=== PATIENT | male | born 2000 | race Two or more races ===

== ENCOUNTER 2024-05-30 21:13 | Emergency (ER) | payer MEDICAID, SELFPAY ==
--- NOTE | 2024-05-30 21:58 | EDNOTE_ITS ---
ED Dental RME/HPI General Chief complaint: Dental/Oral/Throat Stated complaint: LEFT TOOTH PAIN Time Seen by Provider: 05/30/24 21:55 Arrival date/time: 05/30/24 21:13 24 year old male present to emergency room with c/o of left lower tooth pain for 2 days. denies difficulty swallowing or shortness of breath. LOCATION: Tooth SEVERITY: Symptoms are described as being severe with limitations on activities of daily living CONTEXT: The patient is unable to identify any inciting events. DURATION/TIMING: The symptoms started approximately 2 days ASSOCIATED SYMPTOMS: The patient is unable to identify any other associated symptoms. MODIFYING FACTORS: The patient is unable to identify any alleviating or ag gravating symptoms. PERTINENT ROS: no fevers, no cough, no nausea,vomiting, diarrhea, no dizziness/headache no rash no loc/syncope episode REVIEW OF SYSTEMS: See History of Present Illness - with the exception of those mentioned in the history of present illness, all other systems reviewed and reported as negative GENERAL: In general the patient is awake, interactive, in an emergency depart [facility]. HEAD/EYES/EARS/NOSE/THROAT: No ludwigs, no abscess no airway obstruction normo- cephalic, atraumatic, mucus membranes are moist, anicteric, palpebral conjunctiva is pink, trachea is midline. CARDIOVASCULAR: regular rate and regular rhythm, no murmurs, heart sounds are not distant, strong pulses in all four extremities that are equal and symmetric bilateral upper and lower extremities, normal capillary refill. CHEST/PULMONARY: normal chest rise and fall, good air movement, clear to auscultation bilaterally, normal inspiratory to expiratory ratios without evidence of respiratory distress. NECK: No midline/Paraspinal tenderness, no step off ROM/Strenght intact No Kernig and bruzinski sign. No trauma SKIN: warm, dry, well-perfused, no jaundice, no rash, no telangiectasias or samantha agustina. PSYCH: calm, cooperative, no evidence of psychosis or agitation Related Data Previous Rx's ?Medication ?Instructions ?Recorded amoxicillin 875 mg-potassium 1 tab PO BID #14 tabs 12/16 clavulanate 125 mg tablet ibuprofen 800 mg tablet (IBU) 800 mg PO TID PRN fever or pain 05/30/24 #30 tabs Allergies Allergy/AdvReac Type Severity Reaction Status Date / Time No Known Allergies Allergy Verified 05/30/24 21:14 Course Course Course Narrative: Presentation consistent with dental pain of tooth lower teeth for 2 days? No evidence of Zach's Angina, large abscess pocket, requirement for emergent extraction, or other complications. Provided prescription for augmentin/IBU? Patient informed to follow up with local dentist. Return to ER if pain uncontrolled, abscess that drains purulent fluid, high fevers, trouble swallowing, or other concerns.? Plan:? Discharge from ED? F/U with local dentist Informed to return to ED if has new or worsening symptoms. Expressed understanding of and agreement with plan and all questions answered. Quality Measures none Orders Category Date Time Status Amoxicillin/Pot Clav 875 [Augmentin 875] Med 05/30/24 21:55 Discontinued 1 tab PO X1 ONE Ibuprofen Tab [Motrin Tab] Med 05/30/24 21:55 Discontinued 800 mg PO X1 ONE Dental / Oral Patient data External records reviewed:: [facility] previous records Clinical information provided by:: patient Social determinants that could affect healthcare access:: none Patient has the following chronic illnesses:: n/a How is presenting disease/condition affected by chronic disease/condition?: no chronic disease Evaluation data The following diagnostics were reviewed and interpreted by me:: other (specify) (n/a ) Lab and/or radiology exams considered but not ordered:: n/a Interpretation Summary: n/a Medications / Prescriptions Medications or Prescriptions considered but not ordered:: n/a Medication administrations:: Medication Administration History Discontinued Medications Amoxicillin/Clavulanate Potassium (Amoxicillin/Pot Clav 875 Tablet) 1 tab PO X1 ONE Stop: 05/30/24 21:56 Ibuprofen (Ibuprofen Tab 400 Mg Tablet) 800 mg PO X1 ONE Stop: 05/30/24 21:56 as stated above Consultations Consultation(s) initiated? (list below): No Diagnosis Most likely diagnosis given after review of the tests above:: dental pain Admission Indicated Admission indicated?: not indicated Admission Request Was there a request for admission?: No Disposition Plan Disposition Plan: Discharge Discharge Attestation Discharge Attestation: The patient and all family members were given an opportunity to ask questions and understood the discharge instructions. Discharge instructions specifically effects, indications for sooner follow up or return to the emergency department, and the expected course of current diagnosis. Patient condition: Stable Discharge Plan Plan Patient Disposition: HOME (Self Care) Health Concerns: Follow up with dentist Take tylenol or motrin as need Return to ED if sx worsen [facility] [address] [place] [address] Friday ? Friday 7:30am to 7:00pm Friday 7:30am to 5:30pm Prescriptions/Referrals Prescriptions/Med Rec: New ibuprofen [IBU] 800 mg tablet 800 mg PO TID PRN (Reason: fever or pain) Qty: 30 0RF amoxicillin-pot clavulanate 875-125 mg tablet 1 tab PO BID Qty: 14 0RF Referrals: No Primary/Family,Physician [Primary Care Provider] - In 1 week Problem List Clinical Impression: Toothache Patient/Caregiver Discharge Instructions Education Materials: ED Dental Pain Print Language: Portuguese Stand Alone Forms: Rena Award Info., Patient Portal Info Letter
[2024-05-30] MEDS: IBUPROFEN TAB 400 MG TABLET 800 MG PO (22:01)
[2024-05-30] MEDS: AMOXICILLIN/POT CLAV 875 TABLET 1 TAB PO (22:01)
== END 2024-05-30 22:04 | disposition home or self-care (01) ==
PROVIDERS: Emergency Provider Emergency Medicine
DX: K08.89 Other specified disorders of teeth and supporting structures (principal)
CPT/HCPCS: 99282; A9270

== ENCOUNTER 2024-12-28 00:23 | Emergency (ER) | payer SELFPAY ==
[2024-12-28 00:25] VITALS: BMI 39.9
[2024-12-28 00:44] VITALS: BP 131/85; PULSE 100; RESP 20; TEMP 36.6; O2SAT 95
--- NOTE | 2024-12-28 01:06 | EKG_ITS ---
[facility] Test Date: 2024-12-28 Pat Name: RAMAKRISHNA TONG Department: Room: - Gender: Male Side Splitter: : 2000 Requested By: Jonas Garcia Order Number: [id number] Reading MD: Jonas Garcia Measurements Intervals [place] Rate: 100 P: 50 PA: 110 QRS: 56 QRSD: 92 T: 35 QT: 358 QTc: 464 Interpretive Statements SINUS TACHYCARDIA WITH SHORT PA INTERVAL ABNORMAL RHYTHM ECG No previous ECG available for comparison /store/S0/[id number].pdf
--- NOTE | 2024-12-28 01:06 | XR_ITS ---
Examination: CT chest, without intravenous contrast. CT abdomen, without intravenous contrast. CT pelvis, without intravenous contrast. 2-D sagittal and coronal reconstructions. 3-D reconstructions. Date and time of exam: December 28, 2024, 0159 hours INDICATIONS: Chest abdominal and pelvic pain today shortness of breath CTDI vol (mgy) 6.69 DLP (MGycm) 475 Technique: Multiple CT images, 3.0 mm slice thickness, obtained chest, abdomen, pelvis, with the high-resolution 64 slice scanner.. Sagittal and coronal 2-D reconstructions are obtained. 3-D reconstructions Low dose protocols were performed. One or more of the following dose reduction techniques were used; automated exposure control, adjustment of the mA and/or KV according to patient size, use of iterative reconstruction technique. Findings: No thoracic aortic aneurysm dilatation Pulmonary artery segments are not enlarged No mediastinal lymphadenopathy. 3 mm pulmonary nodule right upper lobe. No pneumonia or pulmonary edema. No visualized liver or splenic lesion No gallstones No pancreatic or adrenal mass No renal or ureteral calculi No pericecal inflammatory change No bowel obstruction No prostatomegaly Minimal thickening of the urinary bladder wall IMPRESSION: No mediastinal lymphadenopathy. No pneumonia or pulmonary edema. 3 mm pulmonary nodule right upper lobe recommend 6-month follow-up PA lateral chest Grade 1 spondylolisthesis L5 on S1. Mild cystitis
--- NOTE | 2024-12-28 01:06 | XR_ITS ---
Examination: CT brain head without contrast. 2-D sagittal coronal reconstructions Date and time of exam: December 28, 2024, 1358 hours INDICATIONS: Onset altered mental status today CTDI: vol (mGy): 48.1 DLP: (mGycm): 924 Technique: Multiple CT axial sections of the brain have been obtained, 5 mm slice thickness. Contrast has not been administered. 2-D sagittal, coronal reconstructions have been obtained Low dose protocols were performed. One or more of the following dose reduction techniques were used; automated exposure control, adjustment of the mA and/or KV according to patient size, use of iterative reconstruction technique. Findings: No significant ventricular enlargement. Intra-axial or extra-axial hemorrhage density is not seen. No mass effect or midline shift Basal cisterns are not remarkable. Fourth ventricle is midline. Cranial vault intact. Impression: Negative for acute hemorrhage, mass effect or midline shift Advise clinical correlation and follow-up accordingly
--- NOTE | 2024-12-28 01:06 | XR_ITS ---
EXAMINATION: PA chest single view TECHNIQUE: Upright PA chest single view. Date and time: December 28, 2024, 0109 hours INDICATIONS: Shortness of breath today FINDINGS: Normal heart size. Lungs are clear. The osseous structures are intact. IMPRESSION: No active disease
--- NOTE | 2024-12-28 01:07 | EDNOTE_ITS ---
Altered Mental Status RME/HPI General Chief Complaint: General Adult/Misc Complain Stated Complaint: DRUG AND ALCOHOL USE Time Seen by Provider: 12/28/24 00:55 Arrival date/time: 12/28/24 00:23 RME / HPI RME / HPI narrative: See [facility] for Dr. Oates's HPI Documentation. Related Data Previous Rx's ?Medication ?Instructions ?Recorded amoxicillin 875 mg-potassium 1 tab PO BID #14 tabs 12/16 clavulanate 125 mg tablet ibuprofen 800 mg tablet (IBU) 800 mg PO TID PRN fever or pain 05/30/24 #30 tabs Allergies Allergy/AdvReac Type Severity Reaction Status Date / Time No Known Allergies Allergy Verified 05/30/24 21:14 Review of Systems Review of Systems Systems Reviewed: All systems reviewed, normal except as documented Past Medical History Social History SMOKING STATUS: Never smoker ALCOHOL: Current ALCOHOL FREQUENCY: 3 or More Drinks per Day ED Exam Narrative Physical exam: See [facility] for Dr. Oates's Physical Exam Documentation. Course Quality Measures none Orders Category Date Time Status EKG (ED ONLY) *Do not use* NOW Care 12/28/24 01:06 Completed Saline [Insert IV] NOW Care 12/28/24 01:04 Completed Straight [In and Out Catheter] X1 Care 12/28/24 01:[address] chest abdomen pelvis wo Stat Exams 12/28/24 01:[address] head/brain wo con Stat Exams 12/28/24 01:06 Taken EKG (ED Only) Stat Exams 12/28/24 01:06 Draft XR chest 1V portable Stat Exams 12/28/24 01:06 Taken Acetaminophen Stat Lab 12/28/24 01:18 Completed Alcohol, Blood Medical Stat Lab 12/28/24 01:18 Completed Amylase Stat Lab 12/28/24 01:18 Completed Bilirubin,Direct Stat Lab 12/28/24 01:18 Completed CBC Stat Lab 12/28/24 01:18 Completed CK [Creatine Kinase] Stat Lab 12/28/24 01:18 Completed CMP [Comprehensive Metabolic Panel] Stat Lab 12/28/24 01:18 Completed Drug Screen,Urine Stat Lab 12/28/24 01:50 Completed Lipase Stat Lab 12/28/24 01:18 Completed Magnesium Stat Lab 12/28/24 01:18 Completed PT [Prothrombin Time with INR] Stat Lab 12/28/24 01:18 Completed PTT [Partial Thromboplastin Time] Stat Lab 12/28/24 01:18 Completed Salicylate Stat Lab 12/28/24 01:18 Completed TSH [Thyroid Stimulating Hormone] Stat Lab 12/28/24 01:18 Completed Troponin I Stat Lab 12/28/24 01:18 Completed UA, C/S IF [Urinalysis, C/S if Indicated] Stat Lab 12/28/24 01:50 Completed ALPRazoLAM [Xanax] Med 12/28/24 03:17 Discontinued 1 mg PO X1 ONE Diazepam Inj [Valium Inj] Med 12/28/24 02:33 Discontinued 5 mg IVP X1 ONE Diazepam Inj [Valium Inj] Med 12/28/24 01:04 Discontinued 7.5 mg IVP X1 ONE Ondansetron Inj [Zofran Inj] Med 12/28/24 01:04 Discontinued 4 mg IVP X1 ONE Sodium Chloride 0.9% 1000 ml [Ns] 1,000 ml Med 12/28/24 01:04 Discontinued IV 999 mls/hr Sodium Chloride 0.9% 1000 ml [Ns] 1,000 ml Med 12/28/24 03:17 Discontinued IV 999 mls/hr Vital Signs Vital signs: Vital Signs Temperature 97.9 F 12/28/24 00:44 Pulse Rate 100 12/28/24 00:44 Respiratory Rate 20 12/28/24 00:44 Blood Pressure 131/85 H 12/28/24 00:44 Pulse Oximetry (%) 95 12/28/24 00:44 Oxygen Delivery Method Room Air 12/28/24 00:44 Altered Mental Status MDM Narrative MDM Narrative:: This section includes all my notes and documentations, including HPI, PE, and ED course. Jonas Oates MD HPI: 24 y/o male presents with paranoia and visual/auditory hallucinations x approximately 24 hours. Admits to alcohol and methamphetamine. No suicidal ideations or homicidal ideations. No other complaints. ROS: All negative except as documented in HPI. Physical Exam: General: Alert and oriented. Appears intoxicated. Eyes: Conjunctivae and lids clear. EOMI. PERRL. ENT: No nasal congestion. Pharynx normal. Tympanic membrane normal bilaterally. Neck: Supple. Heart: RRR. Lungs: No respiratory distress. Good air movement. No rhonchi, wheezing, rales. Abdomen: Soft and nontender. Normal bowel sounds. No distension. No rebound or guarding. Legs: No clubbing, cyanosis, edema. Skin: Warm and dry. Neuro: Alert and oriented X 3. Cranial Nerves II-XII grossly intact. No sreekanth pheral motor deficits. I reviewed all diagnostic test results: My interpretation of the EKG is: Sinus rhythm (100 bpm) with nonspecific ST-T changes. My interpretation of the chest x-ray is no acute findings. My review of the Chest/Abdomen/Pelvis CT report is no acute findings. My review of the Head/Brain CT report is NAD. Blood tests and urine tests remarkable for serum alcohol 74.2 and positive UDS for methamphetamine. At this point, diagnoses include: Alcohol Intoxication Methamphetamine Intoxication Treatment here included: IVF and Valium and Xanax Significant proven noted. Recommended outpatient care. Based on my best medical judgment, made decision no further evaluation or treatment indicated at this time. Patient understands and agrees to the discharge instructions customized and printed, see below. Discharge Instructions from Dr. Oates printed for you: 1. Your symptoms are due to methamphetamine intoxication. And alcohol intoxication. 2. To avoid severe illnesses and injuries, some fatal, avoid alcohol and methamphetamine and all other drugs. 3. For good hydration, increase oral fluid and maintain clear urine. If dark or yellow, increase oral fluid. 4. See a private doctor on 12/29/2024 for recheck. Ask to review all test results and official radiology reports, to make sure you receive all necessary follow-ups and monitoring. Ask for help to quit alcohol and all drugs. 5. Seek immediate medical care with worsening or with any concerns. Jonas Oates MD Patient data External records reviewed:: [facility] previous records (Reviewed prior ED records from 05/30/24. Patient was seen for Toothache.) Clinical information provided by:: patient and family (Brother) Social determinants that could affect healthcare access:: alcohol use Patient has the following chronic illnesses:: None reported How is presenting disease/condition affected by chronic disease/condition?: no chronic disease Evaluation data The following diagnostics were reviewed and interpreted by me:: lab results, radiology exam(s) and EKG tracing(s) (My interpretation of the EKG is: Sinus rhythm (100 bpm) with nonspecific ST-T changes. Jonas Oates MD) Lab and/or radiology exams considered but not ordered:: None Interpretation Summary: I reviewed all diagnostic test results: My interpretation of the EKG is: Sinus rhythm (100 bpm) with nonspecific ST-T changes. My interpretation of the chest x-ray is no acute findings. My review of the Chest/Abdomen/Pelvis CT report is no acute findings. My review of the Head/Brain CT report is NAD. Blood tests and urine tests remarkable for serum alcohol 74.2 and positive UDS for methamphetamine. Medications / Prescriptions Medications or Prescriptions considered but not ordered:: None Medication administrations:: Medication Administration History Discontinued Medications Alprazolam (Alprazolam 0.25 Mg Tablet) 1 mg PO X1 ONE Stop: 12/28/24 03:18 Last Admin: 12/28/24 03:38 Dose: 1 mg Documented By: CCT Diazepam (Diazepam Inj 5 Mg/Ml Vial 2 Ml) 7.5 mg IVP X1 ONE Stop: 12/28/24 01:05 Last Admin: 12/28/24 01:42 Dose: 7.5 mg Documented By: CCT Diazepam (Diazepam Inj 5 Mg/Ml Vial 2 Ml) 5 mg IVP X1 ONE Stop: 12/28/24 02:34 Last Admin: 12/28/24 02:58 Dose: 5 mg Documented By: CCT Sodium Chloride (Ns) 1,000 mls @ 999 mls/hr IV .Q1H1M ONE Stop: 12/28/24 02:04 Last Infusion: 12/28/24 03:06 Dose: Infused Documented By: Admin: 12/28/24 01:42 Dose: 999 mls/hr Documented By: CCT Sodium Chloride (Ns) 1,000 mls @ 999 mls/hr IV .Q1H1M ONE Stop: 12/28/24 04:17 Last Infusion: 12/28/24 04:42 Dose: Infused Documented By: Admin: 12/28/24 03:38 Dose: 999 mls/hr Documented By: CCT Ondansetron HCl (Ondansetron Inj 2 Mg/Ml Inj 2 Ml) 4 mg IVP X1 ONE; Protocol Stop: 12/28/24 01:05 Last Admin: 12/28/24 01:41 Dose: 4 mg Documented By: CCT IV fluid and Valium and Xanax Consultations Consultation(s) initiated? (list below): No Diagnosis Differential diagnosis altered mental status: alcoholic intoxication, altered mental status, delirium, hypoglycemia, hyponatremia and sepsis Most likely diagnosis given after review of the tests above:: Alcohol Intoxication Methamphetamine Intoxication Admission Indicated Admission indicated?: not indicated Explain why admission is indicated or not indicated:: With significant improvement and no condition needing emergent intervention, there was no indication for admission. Admission Request Was there a request for admission?: No Disposition Plan Disposition Plan: Discharge Discharge Attestation Discharge Attestation: The patient and all family members were given an opportunity to ask questions and understood the discharge instructions. Discharge instructions specifically effects, indications for sooner follow up or return to the emergency department, and the expected course of current diagnosis. Patient condition: Stable Discharge Plan Plan Patient Disposition: HOME (Self Care) Prescriptions/Referrals Prescriptions/Med Rec: No Action ibuprofen [IBU] 800 mg tablet 800 mg PO TID PRN (Reason: fever or pain) Qty: 30 0RF amoxicillin-pot clavulanate 875-125 mg tablet 1 tab PO BID Qty: 14 0RF Referrals: No Primary/Family,Physician [Primary Care Provider] - In 1 week Problem List Clinical Impression: Methamphetamine intoxication, Alcohol intoxication Patient/Caregiver Discharge Instructions Discharge Activity: activity as tolerated Education Materials: Understanding Methamphetamine ..., ED Drug Abuse, ED Alcohol Intoxication Additional Instructions: Discharge Instructions from Dr. Oaets printed for you: 1. Your symptoms are due to methamphetamine intoxication. And alcohol intoxication. 2. To avoid severe illnesses and injuries, some fatal, avoid alcohol and methamphetamine and all other drugs. 3. For good hydration, increase oral fluid and maintain clear urine. If dark or yellow, increase oral fluid. 4. See a private doctor on 12/29/2024 for recheck. Ask to review all test results and official radiology reports, to make sure you receive all necessary follow-ups and monitoring. Ask for help to quit alcohol and all drugs. 5. Seek immediate medical care with worsening or with any concerns. Instrucciones de markel del Dr. Oates, impresas para usted: 1. Kylee s?ntomas se deben a dao intoxicaci?n por metanfetamina. Y a dao intoxicaci?n por alcohol. 2. Para evitar enfermedades y lesiones graves, algunas mortales, evite el alcohol, la metanfetamina y todas las dem?s drogas. 3. Para dao buena hidrataci?n, aumente la hidrataci?n oral y mantenga la orina sadaf. Si la orina es oscura o amarilla, aumente la hidrataci?n oral. 4. Consulte con un m?dico particular el 10/31/2024 para dao nueva revisi?n. Solicite la revisi?n de todos los resultados de las pruebas y los informes radiol?gicos oficiales para asegurarse de recibir todos los seguimientos y la monitorizaci?n necesarios. Solicite ayuda para dejar el alcohol y todas las drogas. 5. Busque atenci?n m?dica inmediata si presenta un empeoramiento o si tiene alguna inquietud. Print Language: Martiniquais Stand Alone Forms: Rena Award Info., Patient Portal Info Letter
[2024-12-28 01:25] LABS: Basophils # (Auto) 0.0 Thou/mm3 (0.0-0.2); Basophils % (Auto) 1 % (0-2.5); Eosinophils # (Auto) 0.4 Thou/mm3 (0.0-0.5); Eosinophils % (Auto) 6 % (0-10); Hematocrit 43.8 % (41.0-53.0); Hemoglobin 15.3 g/dL (13.5-16.0); Immature Granulocytes Auto 0.01 Thou/mm3 (0.00-0.00); Lymphocytes # (Auto) 1.7 Thou/mm3 (1.0-4.8); Lymphocytes % (Auto) 27 % (10-50); Mean Corpuscular HGB Conc 34.9 g/dl (31.0-37.0); Mean Corpuscular Hemoglobin 29.3 pg (25.0-35.0); Mean Corpuscular Volume 84 fL (80-100); Monocytes # (Auto) 0.6 Thou/mm3 (0.0-0.8); Monocytes % (Auto) 8 % (0-12); Neutrophils # (Auto) 3.8 Thou/mm3 (1.8-7.7); Neutrophils % (Auto) 58 % (37-80); Nucleated Red Blood Cell # 0.00 Thou/mm3 (0.00-0.00); Nucleated Red Blood Cell % 0 /100 WBC (0); Platelet Count 201 Thou/mm3 (140-440); RDW Standard Deviation 37.2 fL (35.1-43.9); Red Blood Count 5.23 Miln/mm3 (4.50-5.90); White Blood Count 6.5 Thou/mm3 (3.8-10.6)
[2024-12-28 01:30] VITALS: BP 127/86; PULSE 85; RESP 20; TEMP 36.6; O2SAT 96
[2024-12-28 01:39] LABS: INR 1.1 (0.9-1.3); Partial Thromboplastin Time 25.9 Seconds (22.0-36.0); Prothrombin Time 11.2 Seconds (9.0-12.2)
[2024-12-28] MEDS: ONDANSETRON INJ 2 MG/ML INJ 2 ML 4 MG IVP (01:41)
[2024-12-28] MEDS: SODIUM CHLORIDE 0.9% 1000 ML 1,000 ML 999 ML IV ×2 (01:42→03:38)
[2024-12-28] MEDS: DIAZEPAM INJ 5 MG/ML VIAL 2 ML 7.5 MG IVP (01:42)
[2024-12-28 01:49] LABS: Acetaminophen < 2.0 mcg/mL (10.0-20.0); Alanine Aminotransferase 80 U/L (10-49); Albumin, Serum 3.8 gm/dL (3.5-5.0); Albumin/Globulin Ratio 1.4 (1.2-2.2); Alcohol, Blood Medical 74.2 mg/dL (0-10.0); Alkaline Phosphatase 88 U/L (46-116); Amylase 59 U/L (30-118); Anion Gap 10 (7-16); Aspartate Amino Transferase 57 U/L (0-34); BUN/Creatinine Ratio 13 Ratio (12-20); Bilirubin,Direct 0.3 mg/dL (0.0-0.3); Bilirubin,Total 1.0 mg/dL (0.3-1.2); Blood Urea Nitrogen 10 mg/dL (9-23); Calcium 8.5 mg/dL (8.3-10.6); Calcium (Corrected) 8.7 mg/dL (8.5-10.1); Carbon Dioxide 24.1 mMol/L (20.0-31.0); Chloride 104 mMol/L (98-107); Creatine Kinase 196 U/L (34-171); Creatinine (Component) 0.8 mg/dL (0.6-1.3); Estimated Creatinine Clearance 163.4 mL/min (>60); Globulin 2.7 gm/dL (2.3-3.5); Glucose 110 mg/dL (74-106); Lipase 37 U/L (12-53); Magnesium 1.6 mg/dL (1.6-2.6); Osmolality,Calculated 275 (275-295); Potassium 3.8 mMol/L (3.4-5.1); Salicylate < 3.0 mg/dL; Sodium 138 mMol/L (136-145); Thyroid Stimulating Hormone 2.05 uIU/mL (0.55-4.78); Total Protein 6.5 gm/dL (5.7-8.2); Troponin I < 0.002 ng/mL (0.0-0.045); eGFR > 60 See Note
[2024-12-28 02:07] LABS: Collection Type, Urine Clean Catch; Squamous Epithelial Cell,Urine 0 /hpf (0-5)
[2024-12-28 02:18] LABS: Amphetamine/Methamp Scrn,U Positive (Negative); Barbiturate Screen,Urine Negative (Negative); Benzodiazepines Screen,Urine Negative (Negative); Benzoylecgonine Screen, Ur Negative (Negative); Fentanyl Screen,Urine Negative (Negative); Opiate Screen,Urine Negative (Negative); THC Screen,Urine Negative (Negative)
[2024-12-28 02:19] LABS: Bacteria,Urine Rare; Bilirubin,Urine Negative (Negative); Blood,Urine Negative (Negative); Clarity,Urine Clear (Clear/Hazy); Color,Urine Yellow (Lt Yel-Yel); Culture Indicated,Urine Not Indicated; Glucose, Urine Negative (Negative); Ketones,Urine 1+ (Negative); Leukocyte Esterase,Urine Negative (Negative); Nitrite,Urine Negative (Negative); PH,Urine 6.0 (5.0-7.0); Protein,Urine Trace (Neg - Trace); RBC,Urine < 1 /hpf (0-3); Specific Gravity,Urine 1.028 (1.001-1.035); Urobilinogen,Urine OVER mg/dL (0.0-1.0); WBC,Urine 3 /hpf (0-5)
--- NOTE | 2024-12-28 02:21 | PRELIM_ITS ---
CT scan of the head without intravenous contrast (axial sections with sagittal and coronal reformats). December 28, 2024 0158 hours Clinical History: AMS Comparison: None Findings: There is no intracranial hemorrhage, extra-axial collection, mass, mass-effect or midline shift. There is good weathers-white differentiation. There is no CT evidence of acute large vascular territorial infarct. Ventricles are not enlarged or effaced. Visualized paranasal sinuses and tympanomastoid cavities are clear. The bony calvarium is intact. Impression: No intracranial hemorrhage, mass-effect or midline shift. No CT evidence of acute large vascular territorial infarct. Report Electronically Signed By: Lazaro Senior 12/28/2024 2:20:56 AM [EST]
[2024-12-28] MEDS: DIAZEPAM INJ 5 MG/ML VIAL 2 ML IVP (02:58)
[2024-12-28 03:05] VITALS: BP 121/75; PULSE 96; RESP 18; TEMP 37.1; O2SAT 100
--- NOTE | 2024-12-28 03:40 | PRELIM_ITS ---
CT scan of the chest, abdomen and pelvis without intravenous contrast (axial sections with sagittal and coronal reformats) December 28, 2024 0159 hours Clinical History: Chest/abdominal pain. Comparison: No prior study is available for comparison. Findings: There are several small subcentimeter subpleural nonspecific nodular densities in the right upper lobe measuring 3.5 mm (images 98 and 75, series 15). Symmetric haziness is noted in bilateral lower lobes, likely related to the breathing motion artifact and low inspiratory effort. There is no pleural ef fusion or pneumothorax. The aorta is unremarkable on this noncontrast study. No evidence of mediastinal mass or lymphadenopathy. There is no pericardial effusion. There is mild cardiomegaly. The liver, gallbladder, spleen, pancreas and adrenals are unremarkable on this noncontrast study. No evidence of bowel obstruction. The appendix is within normal limits (images 91-102, series 5). The urinary bladder demonstrates mild wall thickening with subtle perivesical fat stranding. There is no free fluid or free air. Bilateral L5 pars defects noted with grade 1 anterolisthesis of L5 on S1. Impression: 1. No evidence of acute intrathoracic or intraabdominal pathology on this noncontrast study. 2. Possible mild acute cystitis. Recommend clinical and laboratory correlation. 3. Several scattered small subcentimeter subpleural nodular densities in the right upper lobe. Recommend follow-up CT chest per Fleischner Society guidelines. 4. L5 pars defects with grade 1 anterolisthesis of L5 on S1. 5. Other findings as described above. Please note, the evaluation is slightly limited due to motion artifact and absence of intravenous contrast. Report Electronically Signed By: Lazaro Senior 12/28/2024 3:39:37 AM [EST]
[2024-12-28 04:54] VITALS: BP 114/87; PULSE 83; RESP 18; TEMP 36.6; O2SAT 100
== END 2024-12-28 04:54 | disposition home or self-care (01) ==
PROVIDERS: Emergency Provider Emergency Medicine
DX: F10.129 Alcohol abuse with intoxication, unspecified (principal); F15.129 Other stimulant abuse with intoxication, unspecified; Y90.3 Blood alcohol level of 60-79 mg/100 ml; R10.20 Pelvic and perineal pain unspecified side; R06.02 Shortness of breath; R00.0 Tachycardia, unspecified
CPT/HCPCS: 36415; 70450; 71045; 71250; 74176; 80053; 80307; 80320; 80329; 81001; 82150; 82248; 82550; 83690; 83735; 84443; 84484; 85025; 85610; 85730; 93005; 96361; 96374; 96375; 96376; 99284; J2405; J3360; J7030; A9270; G0480